=== PATIENT | male | born 1940 | race Caucasian/White ===

== ENCOUNTER → 2019-09-05 10:44 | Outpatient (CLI) | payer MEDICARE, SELFPAY ==
--- NOTE | ~2019-09-05 | MR_ITS ---
EXAMINATION: MR hip LT wo con DATE: 09/05/2019 11:38 INDICATION: Severe weakness of abduction at the left hip. TECHNIQUE: Magnetic resonance imaging (MRI) of the left hip was performed without intravenous contra st. Sequences included full-field axial PD-weighted FS FSE and T1-weighted FSE, coronal of the pelvis with PD-weighted FS FSE, small field of view of the left hip with axial PD-weighted FS FSE, sagitta l PD-weighted FS FSE and coronal PD weighted FS FSE. Additional radial T1-weighted FGR oriented ortho gonal to the acetabular rim were obtained for evaluation of the labrum. COMPARISON: None FINDINGS: Bones/labrum/cartilage: Severe osteoarthritis at the left hip with essentially complete cartilage loss and [id number] appos ition along a significant portion of the cephalad aspect of the joint space. There are prominent unde rlying subarticular cystic change and edema at both sides of the joint space. Diffuse degenerative te aring of the left acetabular labrum. Marrow signal is otherwise normal. No fracture, osteonecrosis or pathologic marrow replacing process. Right hip joint space appears relatively preserved although bruna luation is more limited on the larger field of view of imaging. There were however smaller degenerati ve subarticular cysts suggesting overlying high-grade chondral malacia at the anterosuperior right ac etabulum. Severe lower lumbar spondylosis. Fluid: Reactive small left hip joint effusion. Physiologic amount of fluid at the right hip. Mild increased fluid signal overlying the left greater trochanter consistent with mild trochanteric bursitis. Soft tissues: Likely age-related symmetric mild diffuse muscular atrophy most prominent at the bilateral gluteus ma ximus muscles. More asymmetric mild to moderate fatty atrophy of the left gluteus medius medius muscl e with myotendinous junction located more cephalad than typical suggesting at least partial tear of t he distal tendon. The bilateral iliopsoas and proximal hamstring tendons are normal. Small to moderat e-sized fat-containing left inguinal hernia. Multiple diverticula along the sigmoid colon without adj acent inflammatory change to suggest diverticulitis. Prostatomegaly. No pathologically enlarged pelvi c/inguinal lymphadenopathy. IMPRESSION: 1. Severe left hip osteoarthritis with diffuse labral degeneration and likely reactive small left hip joint effusion. 2. 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 3. Small to moderate-sized fat-containing left inguinal hernia. Reviewed, dictated and finalized at location A. IMPRESSION: 1. Severe left hip osteoarthritis with diffuse labral degeneration and likely r eactive small left hip joint effusion. 2. 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 3. Small to moderate-sized fat-containing left inguinal hernia.
== END ==
PROVIDERS: PCP Internal Medicine; Visit Provider Orthopaedic Surgery
DX: M16.12 Unilateral primary osteoarthritis, left hip (principal); K40.90 Unilateral inguinal hernia, without obstruction or gangrene, not specified as recurrent
CPT/HCPCS: 73721

== ENCOUNTER → 2020-07-30 13:51 | Outpatient (CLI) | payer MEDICARE, SELFPAY ==
--- NOTE | ~2020-07-30 | MR_ITS ---
EXAMINATION: MR lumbar spine wo con EXAM DATE: 07/30/2020 14:33 INDICATION: Low back pain, occasional bilateral leg pain. TECHNIQUE: Multi-sequential, multiplanar MR images of the lumbar spine were obtained without contrast . Sagittal T1, T2, T2 fat saturation images. Axial T2 weighted images. Comparison is made to prior examination from 06/01/2019. FINDINGS: Mild thoracolumbar dextroscoliosis. There is 3 mm retrolisthesis L4 on L5. Moderate disc di sease L1-2, L2-3, L4-5 and L5-S1. Mild disc disease at L3-4 and mild to moderate lower thoracic disc disease. The conus medullaris terminates at the L1/2 level and has normal signal intensity and morpho logy. Endplate degenerative signal change. There is 8 mm low signal intensity lesion posterior cortex of the right kidney, could be a hemorrhagi c cyst but recommend pre and postcontrast MRI or CT abdomen to exclude less likely possibility of isreal id mass. Level by level evaluation: T12-L1: Disc does not extend beyond the endplate margin. Facet arthropathy: Mild. Neural foraminal stenosis: No stenosis. Central canal stenosis: No stenosis. L1-L2: There is a mild diffuse disc bulge. Facet arthropathy: Mild to moderate. Neural foraminal stenosis: No stenosis. Central canal stenosis: No stenosis. L2-L3: There is a moderate diffuse disc bulge. Facet arthropathy: Mild to moderate. Neural foraminal stenosis: Mild to moderate left, mild right. Central canal stenosis: Mild. L3-L4: There is a mild to moderate diffuse disc bulge. Facet arthropathy: Mild to moderate. Neural foraminal stenosis: Mild to moderate left, mild right. Central canal stenosis: Mild. L4-L5: There is a moderate diffuse disc bulge. Facet arthropathy: Moderate. Neural foraminal stenosis: Moderate right, mild to moderate left. Central canal stenosis: Moderate. L5-S1: There is a moderate to large diffuse disc bulge, asymmetric to the right. Facet arthropathy: Moderate to severe . Ligamentum flavum enlargement. Neural foraminal stenosis: Moderate right, mild to moderate left. Central canal stenosis: Severe. It is difficult to appreciate any significant interval change in this exam compared to 2019. IMPRESSION: 1. L5-S1 severe central canal stenosis. 2. Indeterminate subcentimeter left renal lesion, could be hemorrhagic cyst but recommend abdomen CT or MRI without and with contrast. Reviewed, dictated and finalized at location A. APPRAISER IMPRESSION: 1. L5-S1 severe central canal stenosis. 2. Indeterminate subcentimeter left renal lesion, could be hemorrhagic cyst bu t recommend abdomen CT or MRI without and with contrast.
== END ==
PROVIDERS: PCP Internal Medicine; Visit Provider Orthopaedic Surgery
DX: M54.5 Low back pain (principal)
CPT/HCPCS: 72148

== ENCOUNTER → 2020-08-05 07:54 | Outpatient (CLI) | payer MEDICARE, SELFPAY ==
--- NOTE | ~2020-08-05 | MR_ITS ---
EXAMINATION: MR abdomen wo/w con DATE: 08/05/2020 09:22 INDICATION: Left kidney mass. TECHNIQUE: Magnetic resonance imaging (MRI) of the abdomen was performed without and with 20 mL Multi Naren intravenous contrast. Sequences included coronal T2-weighted FS FSE, coronal and axial FIESTA F S, coronal LAVA-flex, axial LAVA, axial T2-weighted FSE, axial T1-weighted dual-echo FSPGR, axial STI R FSE, and axial DWI. Postcontrast sequences included coronal LAVA-flex and a time course of axial LA VA. COMPARISON: Lumbar spine MRI 07/30/2020 FINDINGS: There are cysts in the liver measuring up to 16 mm. The gallbladder, spleen, pancreas, adrenal glands , and right kidney are normal. There is a 10 mm hemorrhagic cyst in left kidney. There is a 3 mm cyst in left kidney. There are no dilated loops of bowel. There are no pathologically enlarged lymph node s. There is no free intraperitoneal fluid. IMPRESSION: 1. Benign cysts in left kidney. Reviewed, dictated and finalized at location A. REPORTING ANALYST
[2020-08-05 08:44] LABS: Estimated Glomerular Filt Rate 42
== END ==
PROVIDERS: PCP Internal Medicine; Visit Provider Internal Medicine
DX: N28.1 Cyst of kidney, acquired (principal)
CPT/HCPCS: 74183; A9577

== ENCOUNTER 2023-02-18 12:33 | Outpatient (CLI) | payer MEDICARE, SELFPAY ==
--- NOTE | ~2023-02-18 | MR_ITS ---
EXAMINATION: MR lumbar spine wo con DATE: 02/18/2023 13:12 INDICATION: Spinal stenosis of lumbar region with neurogenic claudication. Low back pain. TECHNIQUE: Magnetic resonance imaging (MRI) of the lumbar spine was performed without intravenous con trast. COMPARISON: Lumbar spine MRI 07/30/2020 FINDINGS: There is 11 degrees dextroscoliosis of lumbar spine. There is a transitional segment at lum bosacral junction that is designated L5. There is mild chronic anterior wedging of T10, T11, T12, and L1 vertebral bodies. There are Schmorl's nodes at most levels. There is 3 mm retrolisthesis of L1 on L2 and L3 on L4. There is severely decreased disc height at L1-L2 and moderately decreased disc heig ht at L3-L4 and L4-L5. The distal spinal cord signal intensity is normal. The conus medullaris is at T12-L1. The following disc levels are specifically discussed: L1-L2: The disc is bulging and has an annular fissure There is moderate bilateral facet joint osteoar thritis. There is mild right and moderate left neural foraminal stenosis. There is mild central canal stenosis. L2-L3: The disc is bulging. There is mild bilateral facet joint osteoarthritis. There is mild bilater al neural foraminal stenosis. There is mild central canal stenosis. L3-L4: The disc is bulging and has an annular fissure. There is moderate bilateral facet joint osteoa rthritis. There is moderate right and mild left neural foraminal stenosis. There is mild central chitra l stenosis. L4-L5: The disc is bulging and has an annular fissure. There is severe bilateral facet joint osteoart hritis. There is moderate right and mild left neural foraminal stenosis. There is moderate central ca nal stenosis. There is severe stenosis of right lateral recess. L5-S1: The disc does not extend beyond the endplate margin. There is no facet joint hypertrophy. Ther e is no neural foraminal stenosis. There is no central canal stenosis. IMPRESSION: 1. Moderate lumbar spondylosis, stable from 07/30/2020. 2. Lumbar dextroscoliosis. Reviewed, dictated and finalized at location E.
== END 2023-02-18 12:34 | disposition home or self-care (01) ==
PROVIDERS: PCP Internal Medicine
DX: M47.816 Spondylosis without myelopathy or radiculopathy, lumbar region (principal); M41.86 Other forms of scoliosis, lumbar region; M48.062 Spinal stenosis, lumbar region with neurogenic claudication
CPT/HCPCS: 72148

== ENCOUNTER → 2023-04-29 14:52 | Outpatient (CLI) | payer MEDICARE, SELFPAY ==
--- NOTE | ~2023-04-29 | XR_ITS ---
EXAMINATION: XR lumbar spine min 4V DATE: 04/29/2023 16:14 INDICATION: Lumbar spondylosis. Encounter for preprocedural laboratory examination. TECHNIQUE: 6 views of lumbar spine standing including flexion and extension views were obtained. COMPARISON: Lumbar spine MRI 02/18/2023 FINDINGS: There is 15 degrees dextroscoliosis of thoracolumbar spine. The spine is hypomobile with fl exion and extension. There is 3 mm retrolisthesis of L2 on L3 and L4 on L5. There is mild chronic ant erior wedging of T11-L1 vertebral bodies. There is mildly decreased disc height at L1-L2, severely de creased disc height at L2-L3, moderately decreased disc height at L4-L5, and severely decreased disc height at L5-S1. There is multilevel severe facet joint osteoarthritis. 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 IMPRESSION: 1. Severe lumbar spondylosis. 2. Thoracolumbar dextroscoliosis. Reviewed, dictated and finalized at location A. R ASSOCIATE
== END ==
PROVIDERS: PCP Anesthesiology Pain Medicine; Visit Provider Anesthesiology Pain Medicine
DX: Z01.812 Encounter for preprocedural laboratory examination (principal); M47.896 Other spondylosis, lumbar region
CPT/HCPCS: 72110

== ENCOUNTER 2024-09-11 10:42 | Outpatient (CLI) | payer MEDICARE, SELFPAY ==
--- NOTE | ~2024-09-11 | MR_ITS ---
MRI of the lumbar spine Clinical History: Radiculopathy Technique: Axial T2-weighted images, and sagittal T1-weighted, T2-weighted, and T2 fat-sat images wer e acquired. Findings: There is 5 mm retrolisthesis of L3 over L4. There is 4 mm anterolisthesis of L1 over L2. No fracture seen. No bone marrow signal abnormality seen. At L1-L2, there is moderate degenerative distended. There is mild disc bulge with advanced facet arth ropathy. No central canal stenosis. There is mild left neural foraminal narrowing. Right neural amber en preserved. At L2-L3, there is minimal disc bulge with mild facet arthropathy. No central canal stenosis. There i s mild left neural foraminal narrowing. Right neural foramen preserved. At L3-L4, there is advanced degenerative disc narrowing. There is disc bulge with moderate facet arth ropathy. No craig central canal stenosis. There is severe right neural foraminal narrowing. There is minimal left neural foraminal narrowing. At L4-L5, there is disc bulge with probable central disc extrusion. There is severe facet arthropathy . There is severe spinal canal stenosis/thecal sac compression. There is severe right neural foramina l narrowing. Left neural foramen preserved. At L5-S1, there is no disc bulge or herniation. No spinal canal stenosis or neural foraminal narrowin g. Paravertebral soft tissues are unremarkable. Impression: Severe degenerative spondylosis at L4-L5, as detailed above, with associated central disc extrusion a t this level. Moderate degenerative spondylosis at L3-L4. Additional mild degenerative changes, as above. Grade 1 listheses, as above. Reviewed, dictated and finalized at location M. Impression: Severe degenerative spondylosis at L4-L5, as detailed above, with associated ce ntral disc extrusion at this level. Moderate degenerative spondylosis at L3-L4. Additional mild degenerative change s, as above. Grade 1 listheses, as above.
== END 2024-09-11 10:43 | disposition home or self-care (01) ==
PROVIDERS: PCP Internal Medicine
DX: M47.27 Other spondylosis with radiculopathy, lumbosacral region (principal)
CPT/HCPCS: 72148